=== PATIENT | male | born 1975 | race Two or more races ===

== ENCOUNTER 2017-11-05 22:28 | Emergency (ER) | payer SELFPAY ==
[2017-11-06 02:19] VITALS: BP 148/69; PULSE 82; RESP 18; TEMP 98.7; O2SAT 96
== END 2017-11-06 02:38 | disposition left against medical advice (07) ==
LOC: ED 22:28
DX: Z02.89 Encounter for other administrative examinations (principal); F19.10 Other psychoactive substance abuse, uncomplicated